=== PATIENT | female | born 1990 ===

== ENCOUNTER 2017-06-18 22:14 | Emergency (ER) | payer SELFPAY ==
[2017-06-18 22:57] LABS: HCG,QUALITATIVE URINE POSITIVE (NEGATIVE)
[2017-06-18 23:03] LABS: SQUAMOUS EPITHIAL 4 /hpf (0-5); URINE BACTERIA OCC (<OCC); URINE BILIRUBIN NEGATIVE (NEGATIVE); URINE BLOOD 3+ (NEGATIVE); URINE CLARITY Hazy (Clear); URINE COLOR Red (YELLOW); URINE GLUCOSE (UA) NORMAL (Normal); URINE LEUKOCYTE ESTERASE TRACE Leu/uL (Negative); URINE PROTEIN 1+ mg/dL (NEGATIVE); URINE UROBILINOGEN NORMAL mg/dL (0.2-1.0)
[2017-06-18 23:34] LABS: BASO % 0.4 % (0.0-2.0); EOS # 0.2 K/uL (0.0-0.7); EOS % 1.2 % (0.0-4.0); HEMOGLOBIN 12.8 g/dL (11.0-16.0); LYMPH # 2.8 K/uL (1.0-4.3); LYMPH % 20.7 % (20.0-40.0); MEAN CELL VOLUME 89.7 fL (81.0-99.0); MEAN CORPUSCULAR HEMOGLOBIN 29.6 pg (27.0-31.0); MEAN PLATELET VOLUME 8.5 fL (7.2-11.7); MONO # 0.7 K/uL (0.0-0.8); MONO % 5.5 % (0.0-10.0); NEUT # 9.6 K/uL (1.8-7.0); NEUT % 72.2 % (50.0-75.0); RBC 4.33 Mil/uL (3.80-5.20); RED CELL DISTRIBUTION WIDTH 15.3 % (11.5-14.5); WHITE BLOOD COUNT 13.3 K/uL (4.8-10.8)
[2017-06-18 23:47] LABS: ALB/GLOB RATIO 1.2 (1.0-2.1); ALBUMIN 4.5 g/dL (3.5-5.0); ALT/SGPT 47 U/L (9-52); AST/SGOT 28 U/L (14-36); BLOOD UREA NITROGEN 11 mg/dL (7-17); CALCIUM 8.9 mg/dl (8.6-10.4); GFR AFRICAN-AMERICAN > 60; GFR NON-AFRICAN AMERICAN > 60
--- NOTE | 2017-06-19 01:31 | US ---
EXAM: US First Trimester, Transabdominal US , Transvaginal CLINICAL HISTORY: 27 years old, female; Signs and symptoms; Lmp or gestational age (in weeks): 1-7-17; Other: Vag bleed; ; Additional info: Early preg, spotting TECHNIQUE: Real-time transabdominal and transvaginal obstetrical ultrasound of the maternal pelvis and a first trimester with image documentation. Transvaginal imaging was used for better evaluation of the fetus and adnexa. COMPARISON: No relevant prior studies available. FINDINGS: Gestation: There is an irregular gestational sac in the lower uterine segment measuring 1.9 cm corresponding to 6 weeks 2 days gestational age. There is a pole identified measuring 4 mm corresponding to 6 weeks gestational age. No cardiac activity is identified. There is a yolk sac measuring 5 mm. Placenta/amniotic fluid: Cannot be adequately evaluated due to the early gestational age. Uterus/cervix: The cervix is closed measuring 3.6 cm. No myometrial mass. Ovaries: The right ovary measures 3.5 x 2.3 x 2.8 cm. The left ovary measures 2.3 x 1.7 x 2.0 cm. No mass. Duplex assessment demonstrates normal flow in both ovaries. Free fluid: No free fluid. IMPRESSION: Intrauterine measuring 6 weeks 1 day gestational age without evidence of cardiac activity. Findings are suspicious for demise. However, short interval followup ultrasound in 7 days recommended to assess for viability.
--- NOTE | 2017-06-19 01:41 | C.PDOC ---
History Of Present Illness <Chivo Antoine - Last Filed: 06/19/17 01:44> <Vicki Su - Last Filed: 06/19/17 02:20> 27 year old female, who is currently around 7 weeks , presents to the ED for evaluation of vaginal spotting. [place]. Patient is . She denies fever, chills. (Chivo Antoine) History Per: Patient History/Exam Limitations: no limitations Onset/Duration Of Symptoms: Hrs Current Symptoms Are (Timing): Still Present Associated Symptoms: denies: Fever, Chills Additional History Per: Patient Abnormal Vaginal Bleeding: Yes : 1 Para: 0 <Chivo Antoine - Last Filed: 06/19/17 01:44> <Vicki Su - Last Filed: 06/19/17 02:20> Time Seen by Provider: 06/18/17 23:13 Chief Complaint (Nursing): Female Genitourinary Past Medical History Reviewed: Historical Data, Nursing Documentation, Vital Signs - Medical History PMH: No Chronic Diseases Surgical History: No Surg Hx Family History: States: Unknown Family Hx - Social History Hx Alcohol Use: No Hx Substance Use: No <Chivo Antoine - Last Filed: 06/19/17 01:44> Reviewed: Historical Data, Nursing Documentation, Vital Signs Family History: States: No Known Family Hx <NaamonaeCandeestiven - Last Filed: 06/19/17 02:20> Vital Signs: Last Vital Signs Temp 97.9 F 06/18/17 22:29 Pulse 87 06/18/17 22:29 Resp 18 06/18/17 22:29 BP 126/77 06/18/17 22:29 Pulse Ox 100 06/19/17 02:18 Review Of Systems Constitutional: Negative for: Fever, Chills Genitourinary: Positive for: Other (vaginal spotting ) <Chivo Antoine - Last Filed: 06/19/17 01:44> Physical Exam - Physical Exam Appears: Non-toxic, No Acute Distress, Other (obese ) Skin: Normal Color, Warm, Dry Head: Atraumatic, Normacephalic Eye(s): bilateral: Normal Inspection Oral Mucosa: Moist Neck: Supple Chest: Symmetrical, No Deformity, No Tenderness Cardiovascular: Rhythm Regular, No Murmur Respiratory: Normal Breath Sounds, No Rales, No Rhonchi, No Wheezing Gastrointestinal/Abdominal: Soft, No Tenderness, No Guarding, No Rebound Extremity: Normal ROM, Capillary Refill (less than 2 seconds ) Neurological/Psych: Oriented x3, Normal Speech, Normal Cognition Gait: Steady <Chivo Antoine - Last Filed: 06/19/17 01:44> ED Course And Treatment - Laboratory Results Result Diagrams: 06/18/17 Unknown 06/18/17 Unknown O2 Sat by Pulse Oximetry: 100 Progress Note: Bloodwork, urinalysis and ultrasound ordered and reviewed. <Chivo Antoine E - Last Filed: 06/19/17 01:44> - Laboratory Results Result Diagrams: 06/18/17 Unknown 06/18/17 Unknown - CT Scan/US ultrasound Other Rad Studies (CT/US): Interpreted By Me, Read By Radiologist, Radiology Report Reviewed CT/US Interpretation: EXAM: US First Trimester, Transabdominal. US , Transvaginal. CLINICAL HISTORY: 27 years old, female; Signs and symptoms; Lmp or gestational age (in weeks): 1-7-17; Other: Vag. bleed; ; Additional info: Early preg, spotting. TECHNIQUE: Real-time transabdominal and transvaginal obstetrical ultrasound of the maternal pelvis and a first. trimester with image documentation. Transvaginal imaging was used for better evaluation. of the fetus and adnexa. COMPARISON: No relevant prior studies available. FINDINGS: Gestation: There is an irregular gestational sac in the lower uterine segment measuring 1.9 cm. corresponding to 6 weeks 2 days gestational age. There is a pole identified measuring 4 mm. corresponding to 6 weeks gestational age. No cardiac activity is identified. There is a yolk sac. measuring 5 mm. Placenta/ amniotic fluid: Cannot be adequately evaluated due to the early gestational age. Uterus/cervix: The cervix is closed measuring 3.6 cm. No myometrial mass. Ovaries: The right ovary measures 3.5 x 2.3 x 2.8 cm. The left ovary measures 2.3 x 1.7 x 2.0 cm. No mass. Duplex assessment demonstrates normal flow in both ovaries. Free fluid: No free fluid. IMPRESSION: Intrauterine measuring 6 weeks 1 day gestational age without evidence of cardiac. activity. Findings are suspicious for demise. However, short interval followup ultrasound in 7. days recommended to assess for viability. 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 I have reviewed the chart and agree that the record accurately reflects my personal performance of the history, physical exam, medical decision making, and the department course for this patient. I have also personally directed, reviewed, and agree with the discharge instructions and disposition. (Chivo Antoine) Physician Patient Turnover Patient Signed Over To: Vicki Su Handoff Comments: pending ultrasound results <Chivo Antoine - Last Filed: 06/19/17 01:44>
[2017-06-19 04:06] VITALS: BP 118/70; PULSE 76; RESP 20; TEMP 98; O2SAT 98
== END 2017-06-19 04:04 | disposition home or self-care (01) ==
LOC: C.ER 22:14
DX: O20.0 Threatened abortion (principal); Z3A.01 Less than 8 weeks gestation of pregnancy

== ENCOUNTER 2017-06-26 09:26 | Emergency (ER) | payer OTHER ==
[2017-06-26 09:33] VITALS: BMI 30.2
[2017-06-26 09:34] VITALS: BP 121/83; PULSE 86; RESP 18; TEMP 98.2; O2SAT 99
[2017-06-26 10:35] LABS: BASO # 0.1 K/uL (0.0-0.2); BASO % 0.5 % (0.0-2.0); EOS # 0.2 K/uL (0.0-0.7); EOS % 1.6 % (0.0-4.0); HEMOGLOBIN 12.8 g/dL (11.0-16.0); LYMPH # 2.6 K/uL (1.0-4.3); LYMPH % 25.2 % (20.0-40.0); MEAN CELL VOLUME 89.8 fL (81.0-99.0); MEAN CORPUSCULAR HEMOGLOBIN 30.5 pg (27.0-31.0); MEAN PLATELET VOLUME 8.6 fL (7.2-11.7); MONO # 0.7 K/uL (0.0-0.8); MONO % 6.8 % (0.0-10.0); NEUT # 6.7 K/uL (1.8-7.0); NEUT % 65.9 % (50.0-75.0); RBC 4.19 Mil/uL (3.80-5.20); RED CELL DISTRIBUTION WIDTH 14.2 % (11.5-14.5); WHITE BLOOD COUNT 10.1 K/uL (4.8-10.8)
[2017-06-26 10:38] LABS: SQUAMOUS EPITHIAL 3 /hpf (0-5); URINE BILIRUBIN NEGATIVE (NEGATIVE); URINE BLOOD 3+ (NEGATIVE); URINE CLARITY Hazy (Clear); URINE COLOR Yellow (YELLOW); URINE GLUCOSE (UA) NORMAL (Normal); URINE LEUKOCYTE ESTERASE NEG Leu/uL (Negative); URINE PROTEIN NEGATIVE (NEGATIVE); URINE UROBILINOGEN NORMAL mg/dL (0.2-1.0)
[2017-06-26 10:46] LABS: BLOOD UREA NITROGEN 7 mg/dL (7-17); CALCIUM 8.9 mg/dl (8.6-10.4); GFR AFRICAN-AMERICAN > 60; GFR NON-AFRICAN AMERICAN > 60
--- NOTE | 2017-06-26 11:33 | US ---
HISTORY: vaginal spotting and repeat ultrasound COMPARISON: None available. TECHNIQUE: Transvaginal FINDINGS: UTERUS: Measures 9.3 x 5.7 x 6.2 cm. Normal in size and appearance. No fibroid or other mass lesion seen. ENDOMETRIUM: Measures 11 mm in diameter. Unremarkable. CERVIX: No cervical abnormality identified. RIGHT OVARY: Measures 2.9 x 1.9 x 2.6 cm. No solid mass. Normal flow. LEFT OVARY: Measures 3.5 x 2.8 x 2.8 cm. No solid mass. Normal flow. FREE FLUID: No significant free fluid noted. OTHER FINDINGS: None. IMPRESSION: Unremarkable pelvic ultrasound examination. No intrauterine gestation identified. Please correlate with beta HCG in consideration of possible ectopic gestation.
--- NOTE | 2017-06-26 13:18 | C.PDOC ---
History Of Present Illness 27 y/o female presents to the ER for evaluation after she was seen in [facility] ER on 06/18/17 for vaginal spotting and she had an US which showed a 6 week demise. Her Beta HCG was found to be 2000. Patient has returned today for a repeat US and Beta HCG. Patient states that she intermittent vaginal spotting. Denies having abdominal pain, nausea, vomiting, and diarrhea. Time Seen by Provider: 06/26/17 09:53 Chief Complaint (Nursing): Female Genitourinary History Per: Patient History/Exam Limitations: no limitations Onset/Duration Of Symptoms: Days Current Symptoms Are (Timing): Still Present Severity: Moderate Past Medical History Reviewed: Historical Data, Nursing Documentation, Vital Signs Vital Signs: Last Vital Signs Temp 98.2 F 06/26/17 09:33 Pulse 86 06/26/17 09:33 Resp 18 06/26/17 09:33 BP 121/83 06/26/17 09:33 Pulse Ox 99 06/26/17 13:31 - Medical History PMH: No Chronic Diseases Surgical History: No Surg Hx Family History: States: No Known Family Hx - Social History Hx Alcohol Use: No Hx Substance Use: No - Immunization History Hx Tetanus Toxoid Vaccination: No Hx Influenza Vaccination: No Hx Pneumococcal Vaccination: No Review Of Systems Except As Marked, All Systems Reviewed And Found Negative. Constitutional: Negative for: Fever, Chills Gastrointestinal: Negative for: Nausea, Vomiting, Abdominal Pain, Diarrhea Genitourinary: Positive for: Other (vaginal spotting) Physical Exam - Physical Exam Appears: Non-toxic, No Acute Distress Skin: Normal Color, Warm, Dry Head: Atraumatic, Normacephalic Eye(s): bilateral: Normal Inspection Nose: Normal Oral Mucosa: Moist Neck: Supple Chest: Symmetrical Cardiovascular: Rhythm Regular Respiratory: Normal Breath Sounds, No Rales, No Rhonchi, No Wheezing Gastrointestinal/Abdominal: Normal Exam, Soft, No Tenderness Neurological/Psych: Oriented x3, Normal Speech, Normal Motor, Normal Sensation ED Course And Treatment - Laboratory Results Result Diagrams: 06/26/17 10:18 06/26/17 10:18 O2 Sat by Pulse Oximetry: 99 (RA) Pulse Ox Interpretation: Normal - CT Scan/US US-Transvaginal Other Rad Studies (CT/US): Read By Radiologist, Radiology Report Reviewed CT/US Interpretation: HISTORY: vaginal spotting and repeat ultrasound. COMPARISON: None available. TECHNIQUE: Transvaginal. FINDINGS: UTERUS: Measures 9.3 x 5.7 x 6.2 cm. Normal in size and appearance. No fibroid or other mass lesion seen. ENDOMETRIUM: Measures 11 mm in diameter. Unremarkable. CERVIX: No cervical abnormality identified. RIGHT OVARY: Measures 2.9 x 1.9 x 2.6 cm. No solid mass. Normal flow. LEFT OVARY: Measures 3.5 x 2.8 x 2.8 cm. No solid mass. Normal flow. FREE FLUID: No significant free fluid noted. OTHER FINDINGS: None. IMPRESSION: Unremarkable pelvic ultrasound examination. No intrauterine gestation identified. Please correlate with beta HCG in consideration of possible ectopic gestation. Medical Decision Making Medical Decision Making: Assessment: --Complete Miscarriage Plan: --Labs --UA --US- Transvaginal --POC Urine Test Updates: US does not demonstrate an IUP.Case d/c with , [employer] division chair and okay to discharge home. Patient has been discharged home and told to follow up with her [employer] or medical clinic in 2 days. Disposition - Disposition Disposition: HOME/ ROUTINE Disposition Time: 12:00 Condition: STABLE Additional Instructions: follow up with Dr. Aguirre or medical clinic in 2 days continue medications at home return to hospital if symptoms worsens or progress Instructions: Miscarriage, Dealing With Miscarriage Forms: Gen Discharge Inst Chilean, MRI Interventions (Chilean) Print Language: ENGLISH - Clinical Impression Clinical Impression: Miscarriage - Scribe Statement The provider has reviewed the documentation as recorded by the Freida Colunga Provider Attestation: All medical record entries made by the Freida were at my direction and personally dictated by me. I have reviewed the chart and agree that the record accurately reflects my personal performance of the history, physical exam, medical decision making, and the department course for this patient. I have also personally directed, reviewed, and agree with the discharge instructions and disposition.
== END 2017-06-26 13:09 | disposition home or self-care (01) ==
LOC: C.ER 09:26
DX: O03.9 Complete or unspecified spontaneous abortion without complication (principal)

== ENCOUNTER 2018-03-06 16:32 | Emergency (ER) | payer SELFPAY ==
[2018-03-06 16:47] VITALS: BMI 34.4
[2018-03-06] MEDS ORDERED: Sodium Chloride 0.9% 1,000 ML IV ONE (16:58)
[2018-03-06 17:24] LABS: SQUAMOUS EPITHIAL 3 /hpf (0-5); URINE BACTERIA RARE (<OCC); URINE BILIRUBIN NEGATIVE (NEGATIVE); URINE BLOOD NEGATIVE (NEGATIVE); URINE CLARITY Clear (Clear); URINE COLOR Straw (YELLOW); URINE GLUCOSE (UA) NORMAL (Normal); URINE LEUKOCYTE ESTERASE NEG Leu/uL (Negative); URINE PROTEIN NEGATIVE (NEGATIVE); URINE UROBILINOGEN NORMAL mg/dL (0.2-1.0)
[2018-03-06 17:26] LABS: BASO % 0.2 % (0.0-2.0); EOS # 0.1 K/uL (0.0-0.7); EOS % 1.1 % (0.0-4.0); LYMPH # 3.1 K/uL (1.0-4.3); LYMPH % 23.8 % (20.0-40.0); MEAN CELL VOLUME 91.2 fL (81.0-99.0); MEAN CORPUSCULAR HEMOGLOBIN 30.1 pg (27.0-31.0); MEAN PLATELET VOLUME 8.6 fL (7.2-11.7); MONO # 0.9 K/uL (0.0-0.8); MONO % 7.1 % (0.0-10.0); NEUT # 8.7 K/uL (1.8-7.0); NEUT % 67.8 % (50.0-75.0); RBC 4.33 Mil/uL (3.80-5.20); RED CELL DISTRIBUTION WIDTH 13.7 % (11.5-14.5); WHITE BLOOD COUNT 12.9 K/uL (4.8-10.8)
--- NOTE | 2018-03-06 17:46 | C.PDOC ---
History Of Present Illness 27yo female, with EGA of 7weeks, comes to ER reporting vaginal spotting and mild pelvic pain. She denies any vaginal discharge, fever, chills, chest pain, vomiting , diarrhea, dysuria. Time Seen by Provider: 03/06/18 16:55 Chief Complaint (Nursing): Female Genitourinary History Per: Patient History/Exam Limitations: no limitations Current Symptoms Are (Timing): Still Present Severity: Mild Abnormal Vaginal Bleeding: Yes Last Menstral Period: 01/05/18 Past Medical History Reviewed: Historical Data, Nursing Documentation, Vital Signs Vital Signs: Last Vital Signs Temp 98.3 F 03/06/18 16:44 Pulse 74 03/06/18 16:44 Resp 17 03/06/18 16:44 BP 111/77 03/06/18 16:44 Pulse Ox 98 03/06/18 16:44 - Medical History PMH: No Chronic Diseases Surgical History: No Surg Hx Family History: States: No Known Family Hx - Social History Hx Alcohol Use: No Hx Substance Use: No - Immunization History Hx Tetanus Toxoid Vaccination: No Hx Influenza Vaccination: No Hx Pneumococcal Vaccination: No Review Of Systems Except As Marked, All Systems Reviewed And Found Negative. Constitutional: Negative for: Fever, Chills Cardiovascular: Negative for: Chest Pain Respiratory: Negative for: Shortness of Breath Gastrointestinal: Negative for: Nausea, Vomiting, Abdominal Pain, Diarrhea Genitourinary: Positive for: Vaginal Bleeding, Pelvic Pain. Negative for: Dysuria, Hematuria Physical Exam - Physical Exam Appears: Well, Non-toxic, No Acute Distress Skin: Normal Color Eye(s): bilateral: Normal Inspection Oral Mucosa: Moist Cardiovascular: Rhythm Regular Respiratory: Normal Breath Sounds, No Rales, No Rhonchi, No Wheezing Gastrointestinal/Abdominal: Bowel Sounds, Soft, Tenderness (mild suprapubic TTP), No Mass, No Guarding, No Rebound Back: Normal Inspection, No CVA Tenderness Pelvic: Other (deferred) Extremity: Normal ROM, No Pedal Edema Neurological/Psych: Oriented x3 ED Course And Treatment - Laboratory Results Result Diagrams: 03/06/18 17:21 O2 Sat by Pulse Oximetry: 98 (RA) Pulse Ox Interpretation: Normal Progress Note: Blood work, UA, transvaginal US ordered and reviewed. Patient given IV NS bolus. Disposition - Disposition Disposition Time: 18:20 Condition: STABLE Forms: [employer] (Japanese) - Clinical Impression Clinical Impression: Pelvic pain affecting - Scribe Statement The provider has reviewed the documentation as recorded by the Freida Green Provider Attestation: All medical record entries made by the Anayeliibluis e were at my direction and personally dictated by me. I have reviewed the chart and agree that the record accurately reflects my personal performance of the history, physical exam, medical decision making, and the department course for this patient. I have also personally directed, reviewed, and agree with the discharge instructions and disposition. Physician Patient Turnover Patient Signed Over To: Hollie Rust Handoff Comments: Pending ultrasound
[2018-03-06 18:26] LABS: ALB/GLOB RATIO 1.3 (1.0-2.1); ALBUMIN 4.5 g/dL (3.5-5.0); ALT/SGPT 90 U/L (9-52); AST/SGOT 66 U/L (14-36); BLOOD UREA NITROGEN 6 mg/dL (7-17); CALCIUM 9.7 mg/dl (8.6-10.4); GFR NON-AFRICAN AMERICAN > 60
[2018-03-06] MEDS ORDERED: Sodium Chloride 0.9% 1,000 ML ONE (19:12)
[2018-03-06 19:15] VITALS: RESP 16; TEMP 98.6
[2018-03-06 21:23] VITALS: BP 120/78; PULSE 92; O2SAT 99
--- NOTE | 2018-03-07 12:10 | US ---
Pelvic ultrasound HISTORY: . Bleeding. Comparison: None available. Technique: Real-time sonography was performed through the pelvis utilizing transabdominal and transvaginal techniques. Findings: Uterus: 13.3 x 7.2 x 7.6 centimeters. Heterogeneous echotexture. Anteverted. Cervix measures 4.8 centimeters. Intrauterine gestational sac measuring 2.5 centimeters corresponding to a gestational age of 7 weeks and 2 days. Yolk sac measures 3.7 millimeters. The crown-rump length measures 1.31 centimeters corresponding to a gestational age of 7 weeks and 4 days. Suggestion of subchorionic hemorrhage adjacent to the gestational sac measuring 2.8 x 1.1 x 2.0 centimeters. heart rate of 156 beats per minute. No free fluid in the pelvic cul-de-sac. Right ovary: Not well visualized. Left ovary: 3.5 x 2.7 x 2.9 centimeters. Normal flow. Free fluid adjacent to the left ovary. Impression: Intrauterine corresponding to a gestational age of 7 weeks and 4 days by crown-rump length of 1.31 centimeters. heart rate of 156 beats per minute. Yolk sac identified. Suggestion of subchorionic hemorrhage measuring 2.8 x 1.1 x 2.0 centimeters adjacent to the gestational sac. Right ovary not well visualized. Free fluid adjacent to the left ovary. Limited 1st trimester ultrasound for viability purposes only. Continued interval followup with serial ultrasound, serial HCG levels, and gynecological consultation would be helpful if clinically indicated. A preliminary report was generated at 8:46 p.m. on 03/06/[address] Omid Scruggs from [email or web address]
== END 2018-03-06 21:21 | disposition home or self-care (01) ==
LOC: C.ER 16:32
DX: O20.0 Threatened abortion (principal); R10.2 Pelvic and perineal pain; Z3A.01 Less than 8 weeks gestation of pregnancy
CPT/HCPCS: 76805; 76817; 80053; 81001; 84702; 85025; 86850; 86900; 96360; 99285; J2792; J7030